=== PATIENT | female | born 1980 | race Caucasian/White ===

== ENCOUNTER 2016-10-08 23:55 | Observation (INO) | payer OTHER ==
--- NOTE | ~2016-10-08 | HP ---
Unit #: [id number] #: [id number] Patient: GEENA HAWKINS [id number] [address] [place], [place] [address] [id number] I MR#: [id number] NAME: GEENA HAWKINS ROOM: 217 Age: 36 Sex: F Admission Date: 10/09/2016 : 1980 Attending Physician: Nancy Guzman M.D. Primary Care Physician: Ariana Mckeon M.D. HISTORY AND PHYSICAL CHIEF COMPLAINT Nausea, vomiting. HISTORY OF PRESENT ILLNESS 36-year-old with history of cannabis hyperemesis syndrome with intractable nausea and vomiting in the past with multiple episodes, admitted because of nausea, vomiting again. According to her, it started one day prior to the admission. She initially went to [facility] and from there she was transferred here because her vomiting did not get better. Currently, she is complaining of nausea. Also, generalized abdominal pain. When she had it, it is 10 out of 10, currently better with Dilaudid 5 out of 10. Also noticed that her blood pressure is 177/138 on admission. No chest pain, no shortness of breath, no diarrhea, no constipation, no leg swelling. PAST MEDICAL HISTORY 1. History of multiple admissions for nausea, vomiting secondary to cannabis/hyperemesis syndrome. 2. History of marijuana abuse. 3. Chronic leukocytosis, most likely secondary to marijuana abuse. 4. Hypertension. 5. History of epigastritis. PAST SURGICAL HISTORY 1. History of . 2. Tubal ligation. 3. Bone marrow biopsy. SOCIAL HISTORY No history of smoking or alcohol. She uses marijuana. FAMILY HISTORY Positive for hypertension. ALLERGIES Morphine. CURRENT HOME MEDICATIONS 1. Lopressor 25 p.o. b.i.d. 2. Hydralazine 50 mg four times daily. 3. Zofran 4 mg q.6 p.r.n. nausea. REVIEW OF SYSTEMS No headache, no visual changes, no weakness, numbness, tingling. No skin Unit #: [id number] #: [id number] Patient: GEENA HAWKINS rash. Reviewed twelve point systems with her which are negative except as in HPI. PHYSICAL EXAMINATION VITAL SIGNS: Temperature 98.9, pulse 115, respirations 18, current blood pressure is 210/125. GENERAL: 37-year-old lying on bed, alert, oriented x3. HEENT: Pupils equally react to light and accommodation. Dry mucosa present. NECK: Supple. HEART: S1, S2 heard. Tachycardia present. No murmurs. LUNGS: Clear to auscultation. No crackles, no rhonchi. ABDOMEN: Tender. Voluntary guarding present. No hepatosplenomegaly. Bowel sounds are present. EXTREMITIES: No pedal edema. SKIN: No rash. NEUROLOGICAL: No focal neurological deficits. Moving all extremities. DIAGNOSTIC STUDIES LABORATORY DATA: WBC 18.8, hemoglobin 15.4, platelets 377, beta hcg negative. Sodium 133, creatinine 0.7, glucose 207, AST 45, ALT 63, alkaline phosphatase 81, total bilirubin 0.6. lipase 26. Urinalysis shows 1+ protein and ketone 3+. No signs of infection. ASSESSMENT AND PLAN 37-year-old admitted because of nausea and vomiting. 1. Hypertensive crisis secondary to not taking her home medications: I am going to monitor her vitals closely, give her IV Vasotec and p.o. metoprolol and hydralazine and monitor her blood pressure. She might need IV Lopressor or IV hydralazine. In that case, I am going to transfer her to telemetry. Currently, she is in Med/Surg observation status. 2. Cannabis hyperemesis syndrome with multiple previous admission: Dr. Art to see. I am going to start her on IV Phenergan and IV Dilaudid. 3. Chronic leukocytosis, most likely secondary to marijuana abuse: No signs of infection. Monitor. 4. Metabolic acidosis: Continue with IV fluids. 5. Check urine tox screen and check vitals q.4 hours. Dictated by Sonya De La Garza TD: 10/09/2016 11:16 JOB #: [id number] Unit #: [id number] #: [id number] Patient: GEENA HAWKINS HISTORY AND PHYSICAL X Nancy Guzman MD HISTORY AND PHYSICAL
[~2016-10-08 23:55] MED LIST: ALDACTONE25 MG PO; APRESOLINE10 M1; BACTRIM DS TABL1 TA2 PO; BENTYL10 M1 PO; BENTYL20 MG PO; CIPRO PO; CLINDAMYCIN HC300 MG PO; COMPAZINE PR; DITROPAN PO; HYDRALAZINE HCL25 MG PO; HYDRALAZINE HCL50 MG PO; HYDROCODON-ACE1 EAC7 PO; LISINOPRIL10 MG PO; LOPRESSOR PO; LORTAB 5-325 M1 EACH PO; MACROBID 100 M100 MG PO; NAPROXEN PO; NO MEDICATIONS; NORCO 7.5-3251 EACH PO; NORVASC PO; PERCOCET 5-3251 TAB PO; PERCOCET PO; PERIDEX473 ML PO; PHENERGAN PR; PHENERGAN SUPP25 M1 PR; PHENERGAN SUPP25 MG PR; PHENERGAN12.5 MG PO; PHENERGAN25 MG PO; POTASSIUM99 M1 PO; PRENATAL MULITV1 TAB PO; PRENATAL1 TA1 PO; PRILOSEC20 MG PO; PROTONIX PO; VOLTAREN75 MG PO; ZANTAC150 M1 PO; ZESTRIL10 M1 PO; ZOFRAN ODT4 MG PO; ZOFRAN ODT4 MG SL; ZOFRAN ODT4 MG/UDTAB PO; ZOFRAN PO
[2016-10-09 01:41] LABS: BASOPHIL% 0.1 % (0-2.5); DIFF IND NO; HEMATOCRIT 45.1 % (35.0-45.0); HEMOGLOBIN 15.4 gm/dL (12.0-16.0); LYMPHOCYTE# 1.6 X10e3 (1.0-3.5); LYMPHOCYTE% 8.5 % (17.0-45.0); MEAN CELL VOLUME 85.9 FL (83-96); MEAN CORPUSCULAR HEMOGLOBIN 29.3 PG (28-34); MEAN CORPUSCULAR HGB CONC 34.1 g/dL (30-36); MEAN PLATELET VOLUME 8.9 FL (6.5-11.5); MONOCYTE# 0.4 X10e3 (0-1.0); NEUTROPHIL# 16.8 X10e3 (1.5-7.1); NEUTROPHIL% 89.4 % (40-75); PLATELET COUNT 377 X10e3 (140-420); RED BLOOD COUNT 5.25 X10e (3.90-5.30); RED CELL DISTRIBUTION WIDTH 12.9 % (11.0-15.5); WHITE BLOOD COUNT 18.8 X10e3 (4.0-10.5)
[2016-10-09 01:53] LABS: ALBUMIN SERUM 4.5 g/dL (3.5-5.0); ALKALINE PHOSPHATASE 81 U/L (32-92); ALT (SGPT) 63 U/L (10-40); AST (SGOT) 45 U/L (10-42); BILIRUBIN, DIRECT 0.1 mg/dL (0.0-0.2); BILIRUBIN,INDIRECT 0.5 mg/dL (0.0-0.9); BILIRUBIN,TOTAL 0.6 mg/dL (0.2-2.0); BLOOD UREA NITROGEN 6 mg/dL (9-23); BUN/CREATININE RATIO 8.57; CARBON DIOXIDE 18 mmol/L (22-31); CHLORIDE 100 mmol/L (100-111); CREATININE SERUM 0.7 mg/dL (0.6-1.4); GLOM FILT RATE Estimated ABOVE60 mL/min (>60); GLUCOSE FASTING 207 mg/dL (70-110); LIPASE 26 U/L (22-51); POTASSIUM 3.5 mmol/L (3.5-5.1); SODIUM 133 mmol/L (135-145)
[2016-10-09 02:55] LABS: URINE SOURCE CLEAN CATCH
[2016-10-09 02:57] LABS: URINE APPEARANCE CLEAR; URINE BILIRUBIN NEG (NEG); URINE BLOOD NEG (NEG); URINE COLOR YELLOW; URINE GLUCOSE 100 MG/DL (NORM); URINE LEUKOCYTE ESTERASE NEG (NEG); URINE NITRATE NEG (NEG); URINE PROTEIN 1+ (NEG); URINE UROBILINOGEN 0.2 MG/DL (NORM)
[2016-10-09 03:00] LABS: MICRO INDICATED? YES; URINE KETONE 3+ (NEG)
[2016-10-09 03:05] LABS: CULTURE INDICATED? NO; URINE BACTERIA NEG (NEG); URINE SQUAMOUS EPITHELIAL CELL OCCAS /[HPF]; URINE WBC 0-2 /[HPF] (0-5)
[2016-10-09 03:06] LABS: URINE MUCUS PRESENT
[2016-10-09 15:30] LABS: AMPHETAMINE NEG (NEG); BARBITURATES NEG (NEG); BENZODIAZEPINES NEG (NEG); COCAINE NEG (NEG); MARIJUANA POS (NEG); OPIATES POS (NEG); TRICYCLIC ANTIDEPRESSANTS NEG (NEG); U METHADONE NEG (NEG)
[2016-10-10 07:07] LABS: HEMATOCRIT 42.1 % (35.0-45.0); HEMOGLOBIN 13.9 gm/dL (12.0-16.0); MEAN CELL VOLUME 86.8 FL (83-96); MEAN CORPUSCULAR HEMOGLOBIN 28.6 PG (28-34); MEAN PLATELET VOLUME 8.3 FL (6.5-11.5); RED BLOOD COUNT 4.85 X10e (3.90-5.30); RED CELL DISTRIBUTION WIDTH 13.1 % (11.0-15.5); WHITE BLOOD COUNT 13.2 X10e3 (4.0-10.5)
[2016-10-10 07:46] LABS: ALBUMIN SERUM 3.7 g/dL (3.5-5.0); ALKALINE PHOSPHATASE 62 U/L (32-92); ALT (SGPT) 54 U/L (10-40); AST (SGOT) 35 U/L (10-42); BILIRUBIN,TOTAL 0.9 mg/dL (0.2-2.0); BLOOD UREA NITROGEN 11 mg/dL (9-23); BUN/CREATININE RATIO 18.33; CALCIUM SERUM 8.7 mg/dL (8.4-10.2); CARBON DIOXIDE 23 mmol/L (22-31); CHLORIDE 106 mmol/L (100-111); CREATININE SERUM 0.6 mg/dL (0.6-1.4); GLOM FILT RATE Estimated ABOVE60 mL/min (>60); GLUCOSE FASTING 79 mg/dL (70-110); POTASSIUM 3.5 mmol/L (3.5-5.1); PROTEIN TOTAL SERUM 6.6 g/dL (6.0-8.3); SODIUM 139 mmol/L (135-145)
[2017-02-13] MEDS ORDERED: OXYCODONE-APAP1 EACH PO (15:35)
== END 2016-10-10 14:57 | disposition home or self-care (01) ==
LOC: SED 23:55 → C2A 10-09 06:25
PROVIDERS: Emergency Medicine; Internal Medicine
DX: I16.9 Hypertensive crisis, unspecified (principal); F12.188 Cannabis abuse with other cannabis-induced disorder; R11.2 Nausea with vomiting, unspecified; D72.828 Other elevated white blood cell count; E87.2 Acidosis; Z82.49 Family history of ischemic heart disease and other diseases of the circulatory system; Z88.5 Allergy status to narcotic agent
CPT/HCPCS: 36415; 80048; 80053; 80076; 80307; 81003; 83690; 84703; 85025; 85027; 96374; 96375; 96376; 99285; C9113; G0378; J1170; J1885; J2405; J2550

== ENCOUNTER 2017-01-18 06:56 | Emergency (ER) | payer OTHER ==
--- NOTE | ~2017-01-18 | CT2 ---
[facility] A Service [facility] RADIOLOGY TEXT RESULTS PATIENT: GEENA HAWKINS LOCATION: SED : 82 UNIT #: [id number] AGE: [address]: Cali Garza MD SEX: F ORDER DR: [id number] [address] [address] [id number] E MR#: [id number] Acc #: [id number] NAME: GEENA HAWKINS : 1980 SEX: F STUDY DATE/TIME: 01/18/2017 8:45 UNIT: SED ROOM: STUDY DESCRIPTION: CT Abd and Pelv W Cont Attending Physician: Cali Garza M.D. Ordering Physician: Cali Garza M.D. Primary Care Physician: Ariana Mckeon M.D. MEDICAL IMAGING REPORT This report is preliminary unless electronic signature is present. EXAM CT abdomen and pelvis with contrast. INDICATION Abdominal pain upper abdomen since this morning at 7. COMPARISON 09/23/2016 TECHNIQUE The patient was given 100 mL of Isovue-370 and axial 5 mm images were obtained through the abdomen and pelvis. This CT exam was performed with one or more of the following radiation dose reduction techniques: automatic exposure control, adjustment of mA and/or kV according to patient size, and iterative reconstruction. FINDINGS The lung bases are clear. There is motion affecting the mid abdominal images. The gallbladder has been removed. The liver, spleen, pancreas, and adrenal glands are normal. The kidneys appear normal. The aorta is normal in size and there is no adenopathy. The bowel is normal. The uterus and adnexal regions are normal. The bladder is normal. Bones are unremarkable. IMPRESSION 1. The patient breathed during part of the study and images of the kidneys are blurred by motion. The prior CT scan 09/23/2016 showed an upper pole renal stone on the right but I cannot tell if that is still present. There is certainly no hydronephrosis on the right and no ureteral stone is visible. 2. The appendix is normal. [facility] A Service [facility] RADIOLOGY TEXT RESULTS PATIENT: GEENA HAWKINS [place] [facility] [place] 82 UNIT #: [id number] AGE: [address]: Cali Garza MD SEX: F ORDER DR: 3. Previous cholecystectomy. 4. Otherwise, normal. Dictated by... Harpreet Kaur M.D. THIS IS AN ELECTRONICALLY VERIFIED REPORT Harpreet Kaur M.D. at 01/19/2017 7:26 AM KAYLIN/jazz TD: 01/18/2017 15:22 JOB #: [id number] MEDICAL IMAGING REPORT Page 1 of 1
[2017-01-18 07:38] LABS: BASOPHIL# 0.1 X10e3 (0-0.3); BASOPHIL% 0.3 % (0-2.5); HEMATOCRIT 47.2 % (35.0-45.0); HEMOGLOBIN 16.1 gm/dL (12.0-16.0); LYMPHOCYTE# 2.7 X10e3 (1.0-3.5); LYMPHOCYTE% 9.3 % (17.0-45.0); MEAN CELL VOLUME 84.7 FL (83-96); MEAN CORPUSCULAR HEMOGLOBIN 28.9 PG (28-34); MEAN CORPUSCULAR HGB CONC 34.2 g/dL (30-36); MONOCYTE# 0.8 X10e3 (0-1.0); MONOCYTE% 2.7 % (3.0-12.0); NEUTROPHIL# 25.1 X10e3 (1.5-7.1); NEUTROPHIL% 87.7 % (40-75); PLATELET COUNT 406 X10e3 (140-420); RED BLOOD COUNT 5.58 X10e (3.90-5.30); WHITE BLOOD COUNT 28.6 X10e3 (4.0-10.5)
[2017-01-18 07:43] LABS: DIFF IND YES
[2017-01-18 08:14] LABS: PLATELET ESTIMATE NORMAL (NORMAL); RBC NORMAL YES
[2017-01-18 08:31] LABS: ALBUMIN SERUM 4.8 g/dL (3.5-5.0); BILIRUBIN,TOTAL 0.6 mg/dL (0.2-2.0); BUN/CREATININE RATIO 11.42; CALCIUM SERUM 8.5 mg/dL (8.4-10.2); CREATININE SERUM 0.7 mg/dL (0.6-1.4); PROTEIN TOTAL SERUM 8.1 g/dL (6.0-8.3)
[2017-01-18 08:34] LABS: POTASSIUM 2.6 mmol/L (3.5-5.1)
[2017-02-13] MEDS ORDERED: OXYCODONE-APAP1 EACH PO (15:35)
== END 2017-01-18 10:08 | disposition home or self-care (01) ==
LOC: SED 06:56
PROVIDERS: Emergency Medicine
DX: R10.9 Unspecified abdominal pain (principal); E87.6 Hypokalemia; I10 Essential (primary) hypertension; Z87.442 Personal history of urinary calculi; Z88.5 Allergy status to narcotic agent; Z79.899 Other long term (current) drug therapy
CPT/HCPCS: 36415; 74177; 80053; 83690; 85025; 96374; 96375; 99284; J0780; J1200; Q9967

== ENCOUNTER 2017-01-18 12:44 | Emergency (ER) | payer OTHER ==
[2017-01-18 14:24] LABS: BASOPHIL% 0.2 % (0-2.5); DIFF IND YES; HEMATOCRIT 44.3 % (35.0-45.0); HEMOGLOBIN 15.3 gm/dL (12.0-16.0); LYMPHOCYTE# 1.1 X10e3 (1.0-3.5); LYMPHOCYTE% 4.7 % (17.0-45.0); MEAN CELL VOLUME 82.7 FL (83-96); MEAN CORPUSCULAR HEMOGLOBIN 28.6 PG (28-34); MEAN CORPUSCULAR HGB CONC 34.6 g/dL (30-36); MEAN PLATELET VOLUME 8.9 FL (6.5-11.5); MONOCYTE# 0.3 X10e3 (0-1.0); MONOCYTE% 1.3 % (3.0-12.0); NEUTROPHIL# 20.9 X10e3 (1.5-7.1); NEUTROPHIL% 93.8 % (40-75); PLATELET COUNT 326 X10e3 (140-420); RED BLOOD COUNT 5.36 X10e (3.90-5.30); RED CELL DISTRIBUTION WIDTH 12.9 % (11.0-15.5); WHITE BLOOD COUNT 22.3 X10e3 (4.0-10.5)
[2017-01-18 14:45] LABS: BILIRUBIN, DIRECT 0.1 mg/dL (0.0-0.2); BILIRUBIN,INDIRECT 1.1 mg/dL (0.0-0.9); BILIRUBIN,TOTAL 1.2 mg/dL (0.2-2.0); BUN/CREATININE RATIO 8.57; CALCIUM SERUM 8.9 mg/dL (8.4-10.2); CREATININE SERUM 0.7 mg/dL (0.6-1.4); POTASSIUM 3.5 mmol/L (3.5-5.1); PROTEIN TOTAL SERUM 8.3 g/dL (6.0-8.3)
[2017-01-18 14:55] LABS: PLATELET ESTIMATE NORMAL (NORMAL)
[2017-01-18 14:56] LABS: RBC NORMAL YES
[2017-01-18 15:54] LABS: URINE SOURCE CLEAN CATCH
[2017-01-18 16:06] LABS: URINE APPEARANCE CLEAR; URINE BILIRUBIN NEG (NEG); URINE BLOOD 1+ (NEG); URINE COLOR YELLOW; URINE GLUCOSE 250 MG/DL (NEG); URINE KETONE 3+ (NEG); URINE LEUKOCYTE ESTERASE NEG (NEG); URINE NITRATE NEG (NEG); URINE PROTEIN 2+ (NEG); URINE SPECIFIC GRAVITY 1.027 (1.003-1.035); URINE UROBILINOGEN 0.2 MG/DL (NEG)
[2017-01-18 16:10] LABS: U HYALINE CASTS AUWI 0-2 /[LPF]; URINE BACTERIA AUWI NEG (NEGATIVE); URINE SQUAMOUS EPITHELIAL CELL NONE SEEN /[HPF]
[2017-01-18 16:15] LABS: CULTURE INDICATED? NO
[2017-02-13] MEDS ORDERED: OXYCODONE-APAP1 EACH PO (15:35)
== END 2017-01-18 17:17 | disposition home or self-care (01) ==
LOC: CED 12:44
PROVIDERS: Student in an Organized Health Care Education/Training Program
DX: R11.2 Nausea with vomiting, unspecified (principal); I10 Essential (primary) hypertension; Z98.51 Tubal ligation status; Z87.442 Personal history of urinary calculi; Z90.49 Acquired absence of other specified parts of digestive tract; Z88.5 Allergy status to narcotic agent; Z79.899 Other long term (current) drug therapy
CPT/HCPCS: 36415; 80048; 80076; 81003; 82150; 83690; 84703; 85025; 96361; 96374; 96375; 99284; C9113; J1200; J2405; J2765; J3010

== ENCOUNTER 2017-02-01 19:51 | Observation (INO) | payer OTHER ==
--- NOTE | ~2017-02-01 | HP ---
Unit #: [id number] #: [id number] Patient: GEENA HAWKINS [id number] [address] [place], [place] [address] [id number] I MR#: [id number] NAME: GEENA HAWKINS ROOM: 476 Age: 36 Sex: F Admission Date: 02/02/2017 : 1980 Attending Physician: Nancy Guzman M.D. Primary Care Physician: Ariana Mckeon M.D. HISTORY AND PHYSICAL CHIEF COMPLAINT Nausea and vomiting many times today. DISCUSSION This is a 36-year-old female with a history of multiple admissions for nausea and vomiting secondary to Cannabis hyperemesis syndrome, history of (1) nodules, chronic leukocytosis, hypertension, history of esophagitis. She presents to the emergency room with chief complaint of nausea, vomiting multiple times today, unable to keep anything down. She was found to have potassium 3.5, leukocytes, white count 25,1000, sodium 131, and immediately been admitted. She denies chest pain. She denies fever, chills, cough, or any other complaint. No shortness of breath. No leg swelling. No constipation. PAST MEDICAL HISTORY 1. History of multiple admissions for nausea and vomiting secondary to Cannabis, hyperemesis syndrome. 2. History of marijuana abuse. 3. History of chronic leukocytosis, most likely secondary to marijuana abuse. 4. History of hypertension. 5. History of esophagitis. 6. History of nonobstructing kidney stones. 7. Marijuana abuse. PAST SURGICAL HISTORY 1. History of . 2. Tubal ligation. 3. Bone marrow biopsy. 4. Cholecystectomy. SOCIAL HISTORY She denied smoking alcohol. Still she continued to use marijuana. FAMILY HISTORY Positive for hypertension. MEDICATION FROM HOME Hydralazine 50 mg 4 times daily; Zofran 4 mg q.6 hours p.r.n. for nausea; Lopressor 25 b.i.d. REVIEW OF SYSTEMS Negative except for history of presenting illness. Unit #: [id number] #: [id number] Patient: GEENA HAWKINS PHYSICAL EXAMINATION GENERAL: 36-year-old young female, lying in the bed, comfortable, not in any distress. VITAL SIGNS: His current vitals are following: Temperature 98.5, heart rate 82, respiratory rate 16, blood pressure 196/111. HEENT: Pupils are equal, react to light and accommodation. Head is normocephalic, atraumatic. Dry mucous membrane. NECK: Supple. No JVD. No thyromegaly. LUNGS: Clear to auscultation bilateral. No rhonchi. No wheezing. HEART: S1, S2, regular rate and rhythm. ABDOMEN: Soft, nontender, nondistended. Bowel sounds positive. EXTREMITIES: To inspection normal. No cyanosis, no clubbing, no edema. NEUROLOGIC: No focal neurologic deficit. Cranial nerves II-XII intact moving all extremities. SKIN: No rash. PSYCH: Normal mood and affect. DIAGNOSTIC STUDIES LABORATORY STUDIES: UA with glucose more than 1,000, rbc's 50-100. Chemistry - sodium 131, potassium 3.1, chloride 102, CO2 16, glucose 200, BUN 5, creatinine 0.5. LFT within normal limits. Lipase 20. White count 25.2, hemoglobin 15, hematocrit 44, platelet 382. ASSESSMENT AND PLAN 1. Intractable nausea and vomiting secondary to Cannabis hyperemesis syndrome. 2. Hypokalemia, replace. 3. Check magnesium level. 4. Hyponatremia. 5. Leukocytosis with history of chronic leukocytosis. 6. History of esophagitis. 7. Hypertension. 8. History of nonobstructing kidney stone. 9. Marijuana abuse. 10. DVT prophylaxis. Will place the patient on SCDs. 11. Admitted to the hospital for observation, IV Protonix, Zofran, IV fluids, replace potassium, check magnesium level, hyperglycemia, check A1c. Dictated by Sonya Mayo TD: 02/02/2017 07:20 JOB #: [id number] HISTORY AND PHYSICAL Page 1 of 1 X X HISTORY AND PHYSICAL
[2017-02-01 21:17] LABS: BASOPHIL# 0.1 X10e3 (0-0.3); BASOPHIL% 0.3 % (0-2.5); HEMATOCRIT 44.3 % (35.0-45.0); HEMOGLOBIN 15.1 gm/dL (12.0-16.0); LYMPHOCYTE# 2.5 X10e3 (1.0-3.5); LYMPHOCYTE% 9.8 % (17.0-45.0); MEAN CELL VOLUME 83.8 FL (83-96); MEAN CORPUSCULAR HEMOGLOBIN 28.7 PG (28-34); MEAN CORPUSCULAR HGB CONC 34.2 g/dL (30-36); MEAN PLATELET VOLUME 9.1 FL (6.5-11.5); MONOCYTE# 0.9 X10e3 (0-1.0); MONOCYTE% 3.4 % (3.0-12.0); NEUTROPHIL# 21.8 X10e3 (1.5-7.1); NEUTROPHIL% 86.5 % (40-75); PLATELET COUNT 382 X10e3 (140-420); RED BLOOD COUNT 5.28 X10e (3.90-5.30); WHITE BLOOD COUNT 25.2 X10e3 (4.0-10.5)
[2017-02-01 21:21] LABS: DIFF IND YES
[2017-02-01 21:42] LABS: PLATELET ESTIMATE NORMAL (NORMAL)
[2017-02-01 21:49] LABS: ALBUMIN SERUM 4.7 g/dL (3.5-5.0); BILIRUBIN, DIRECT 0.2 mg/dL (0.0-0.2); BILIRUBIN,INDIRECT 0.6 mg/dL (0.0-0.9); BILIRUBIN,TOTAL 0.8 mg/dL (0.2-2.0); CALCIUM SERUM 8.7 mg/dL (8.4-10.2); CREATININE SERUM 0.5 mg/dL (0.6-1.4); GLOM FILT RATE Estimated 126.3 mL/min (>60); POTASSIUM 3.1 mmol/L (3.5-5.1)
[2017-02-01 21:55] LABS: URINE SOURCE CLEAN CATCH
[2017-02-01 22:01] LABS: URINE APPEARANCE CLEAR; URINE BILIRUBIN NEG (NEG); URINE BLOOD 3+ (NEG); URINE COLOR YELLOW; URINE GLUCOSE >1000 MG/DL (NEG); URINE KETONE 3+ (NEG); URINE LEUKOCYTE ESTERASE NEG (NEG); URINE NITRATE NEG (NEG); URINE PROTEIN 1+ (NEG); URINE SPECIFIC GRAVITY 1.023 (1.003-1.035); URINE UROBILINOGEN 0.2 MG/DL (NEG)
[2017-02-01 22:06] LABS: U HYALINE CASTS AUWI 0-2 /[LPF]; URBCS1 AUWI 50-100 /[HPF] (0-2); URINE BACTERIA AUWI NEG (NEGATIVE); URINE SQUAMOUS EPITHELIAL CELL OCC /[HPF]
[2017-02-01 22:08] LABS: CULTURE INDICATED? NO
[2017-02-02] MEDS ORDERED: APRESOLINE PO (00:07)
[2017-02-02 09:16] LABS: BASOPHIL# 0.1 X10e3 (0-0.3); BASOPHIL% 0.3 % (0-2.5); HEMOGLOBIN 14.4 gm/dL (12.0-16.0); LYMPHOCYTE# 1.9 X10e3 (1.0-3.5); LYMPHOCYTE% 8.7 % (17.0-45.0); MEAN CORPUSCULAR HEMOGLOBIN 28.5 PG (28-34); MEAN CORPUSCULAR HGB CONC 33.5 g/dL (30-36); MEAN PLATELET VOLUME 9.3 FL (6.5-11.5); MONOCYTE# 0.5 X10e3 (0-1.0); MONOCYTE% 2.3 % (3.0-12.0); NEUTROPHIL# 19.9 X10e3 (1.5-7.1); NEUTROPHIL% 88.7 % (40-75); PLATELET COUNT 332 X10e3 (140-420); RED BLOOD COUNT 5.06 X10e (3.90-5.30); RED CELL DISTRIBUTION WIDTH 13.2 % (11.0-15.5); WHITE BLOOD COUNT 22.4 X10e3 (4.0-10.5)
[2017-02-02 09:22] LABS: DIFF IND NO
[2017-02-02 09:43] LABS: CALCIUM SERUM 8.9 mg/dL (8.4-10.2); CREATININE SERUM 0.5 mg/dL (0.6-1.4); GLOM FILT RATE Estimated 126.3 mL/min (>60); MAGNESIUM 1.8 mg/dL (1.6-3.0); POTASSIUM 3.7 mmol/L (3.5-5.1)
[2017-02-03 07:48] LABS: HEMATOCRIT 42.3 % (35.0-45.0); HEMOGLOBIN 14.2 gm/dL (12.0-16.0); MEAN CELL VOLUME 85.8 FL (83-96); MEAN CORPUSCULAR HEMOGLOBIN 28.7 PG (28-34); MEAN CORPUSCULAR HGB CONC 33.5 g/dL (30-36); MEAN PLATELET VOLUME 9.3 FL (6.5-11.5); RED BLOOD COUNT 4.93 X10e (3.90-5.30); RED CELL DISTRIBUTION WIDTH 13.2 % (11.0-15.5); WHITE BLOOD COUNT 17.7 X10e3 (4.0-10.5)
[2017-02-03 07:54] LABS: ALBUMIN SERUM 3.7 g/dL (3.5-5.0); BILIRUBIN,TOTAL 1.3 mg/dL (0.2-2.0); CALCIUM SERUM 8.7 mg/dL (8.4-10.2); CREATININE SERUM 0.5 mg/dL (0.6-1.4); GLOM FILT RATE Estimated 126.3 mL/min (>60); POTASSIUM 3.4 mmol/L (3.5-5.1)
[2017-02-03] MEDS ORDERED: ZOFRAN PO (11:37)
[2017-02-13] MEDS ORDERED: OXYCODONE-APAP1 EACH PO (15:35)
== END 2017-02-03 17:38 | disposition home or self-care (01) ==
LOC: CED 19:51 → C2A 23:40 → CEDOF 23:40 → CED 02-02 00:26 → CEDOF 02-02 00:26 → C4C 02-02 03:11 → CEDOF 02-02 03:11 → C4C 02-02 07:16 → C2A 02-02 12:01
PROVIDERS: Emergency Medicine; Internal Medicine
DX: F12.188 Cannabis abuse with other cannabis-induced disorder (principal); R11.2 Nausea with vomiting, unspecified; E87.6 Hypokalemia; E87.1 Hypo-osmolality and hyponatremia; D72.829 Elevated white blood cell count, unspecified; I10 Essential (primary) hypertension; F12.10 Cannabis abuse, uncomplicated; Z87.442 Personal history of urinary calculi; Z82.49 Family history of ischemic heart disease and other diseases of the circulatory system
CPT/HCPCS: 36415; 80048; 80053; 80076; 81003; 83036; 83690; 83735; 85025; 85027; 96361; 96374; 96375; 96376; 99285; C9113; G0378; J0360; J1100; J2405; J2550; J2765

== ENCOUNTER 2017-02-04 02:10 | Day surgery (SDC) | payer OTHER ==
--- NOTE | ~2017-02-04 | CO ---
Unit #: [id number] #: [id number] Patient: GEENA HAWKINS [id number] [facility]. [place], [place] [address] [id number] E MR#: [id number] NAME: GEENA HAWKINS ROOM: Age: 36 Sex: F Admission Date: 02/04/2017 : 1980 Attending Physician: Dianelys Hyatt A.P.R.N. Primary Care Physician: Ariana Mckeon M.D. Consultation Date: 02/04/2017 CONSULTATION REPORT REASON FOR CONSULTATION Blood pressure. HISTORY OF PRESENT ILLNESS The patient is a 36-year-old female with a past medical history of cannabis hyperemesis syndrome, chronic leukocytosis, hypertension, esophagitis, nephrolithiasis who was admitted by Dr. Munoz for right ureteral stone. Of note, the patient was hospitalized at [facility] February 02 through the 2016 for nausea and vomiting secondary to cannabis hyperemesis syndrome. She was discharged home yesterday. She states that around midnight she developed right flank pain. She describes it as "sharp." It has been constant in nature. There are no exacerbating or alleviating factors. She states it is similar to when she had a kidney stone in the past. She has also had more than ten bouts of emesis. She denies any fever. In the emergency department, a CT of the abdomen and pelvis was done and showed a 7 x 5 mm stone in the proximal right ureter with mild right hydronephrosis. She also has urinalysis notable for 2+ ketones, 5-10 white blood cells, trace leukocyte esterase. She was given a gram of Rocephin in the emergency department. Laboratory also notable for potassium of 2.7. She received 20 mEq of potassium IV. She was admitted by Dr. Munoz. Blood pressure initially was 168/130. The patient is on hydralazine at home but has been unable to keep the medication down due to vomiting. Most recent blood pressure is 151/110. I am told she received 10 mg of hydralazine IV. PAST MEDICAL HISTORY 1. Admission to [facility] February 02 through the 2016 for cannabis hyperemesis syndrome. She has had multiple admissions for the same. 2. History of marijuana abuse. 3. Chronic leukocytosis, likely secondary to marijuana abuse. 4. Hypertension. 5. Esophagitis. 6. History of nephrolithiasis. PAST SURGICAL HISTORY 1. . 2. Tubal ligation. 3. Bone marrow biopsy. 4. Cholecystectomy. Unit #: [id number] #: [id number] Patient: GEENA HAWKINS SOCIAL HISTORY The patient smokes marijuana. She denies alcohol. FAMILY HISTORY Notable for hypertension. ALLERGIES Morphine. HOME MEDICATIONS 1. Hydralazine 50 mg four times daily. 2. Zofran 4 mg q.6 hours p.r.n. 3. Lopressor is listed 25 mg b.i.d. REVIEW OF SYSTEMS A complete review of systems is negative except as indicated in the HPI. DIAGNOSTIC STUDIES IMAGING: CT of the abdomen and pelvis shows a 7 x 5 mm ureteral stone in the right ureter with mild right hydronephrosis. LABORATORY: Urinalysis notable for trace leukocyte esterase, 2+ ketones, 3+ blood, 50-100 red blood cells, 5-10 white blood cells, negative for bacteria. Urine tox screen is positive for marijuana. Complete blood count notable for white blood cell count of 21.3. Comprehensive metabolic panel notable for sodium 134, potassium 2.7, CO2 18, anion gap 11, glucose 181, calcium 8.1. Amylase and lipase are normal. PHYSICAL EXAMINATION VITAL SIGNS: Temperature is 98.6, pulse 68, respirations 20, blood pressure 168/130. Oxygen saturation 99% on room air. GENERAL: The patient is a female who is sleeping but wakes to voice. HEENT: The head is atraumatic. Mucous membranes are dry. NECK: Supple. Trachea is midline. CARDIOVASCULAR: Tachycardic in the 110s. LUNGS: Clear to auscultation bilaterally with no increased work of breathing. ABDOMEN: Soft, nontender with bowel sounds present in all four quadrants. EXTREMITIES: Nontender with no pedal edema. NEUROLOGIC: The patient is awake and alert. She follows commands. PSYCH: Mood and affect are normal. The patient is cooperative. SKIN: Skin of examined areas is warm and dry. ASSESSMENT The patient is a 36-year-old female with: 1. Right ureteral stone. 2. Mild right hydronephrosis. 3. Leukocytosis: The patient's white blood cell count was 17.7 yesterday. It is 21.3 today. She does have chronic leukocytosis but has been attributed to marijuana use in the past. She had a bone marrow biopsy September 14, 2015, that showed normocellular bone marrow with mild relative granulocytic hyperplasia. Unit #: [id number] #: [id number] Patient: GEENA HAWKINS 4. Hypokalemia: The patient received 20 mEq of potassium in the emergency department. 5. History of cannabis/hyperemesis. 6. Hypertension. 7. History of esophagitis. 8. Tachycardia. PLAN 1. Regarding leukocytosis, the patient does have trace leukocyte esterase and 5-10 white blood cells in the urine. I have ordered a urine culture and sensitivity on urine in the lab as well as Rocephin 1 g IV daily. 2. Regarding tachycardia and hypertension, the patient is on hydralazine and Lopressor at home. Will change these to IV due to the patient being unable to tolerate p.o. at the present time. I have also ordered an EKG and will replace potassium. I have also ordered a magnesium level as well as TSH. Thank you very much for the consultation. We will follow the patient along closely with you. Dictated by... Viki Kuhn M.D. JENARO/manuel TD: 02/04/2017 13:14 JOB #: [id number] CONSULTATION REPORT Page 1 of 1 X Viki Kuhn MD X CONSULTATION REPORT
--- NOTE | ~2017-02-04 | CT4 ---
[facility] A Service of [facility] RADIOLOGY TEXT RESULTS PATIENT: GEENA HAWKINS LOCATION: [place] [address]-2 : [birth year] UNIT #: [id number] AGE: [address]: Fab Munoz MD SEX: F ORDER DR: [id number] [facility] [address] [place], [place] [address] [id number] E MR#: [id number] Acc #: [id number] NAME: GEENA HAWKINS : 1980 SEX: F STUDY DATE/TIME: 02/04/2017 05:01 UNIT: [facility] ROOM: STUDY DESCRIPTION: CT Abd and Pelv Wo Cont Attending Physician: Dianelys Hyatt A.P.R.N. Ordering Physician: Dianelys Hyatt A.P.R.N. Primary Care Physician: Ariana Mckeon M.D. MEDICAL IMAGING REPORT This report is preliminary unless electronic signature is present EXAM Abdomen and pelvis CT 02/04/17 at 05:01. INDICATIONS Right flank pain, vomiting that started yesterday. History of kidney stones. Pain rates 10 out of 10. TECHNIQUE Axial noncontrast images were obtained through the abdomen and pelvis. Multiplanar reformats were obtained. This CT exam was performed with one or more of the following radiation dose reduction techniques: automatic exposure control, adjustment of mA and/or kV according to patient size, and iterative reconstruction. COMPARISON Comparison made with 01/18/2017. FINDINGS Abdomen: Lung bases are clear. Gallbladder surgically absent. There is mild right hydronephrosis secondary to a 7 x 5 mm stone in the proximal ureter distal to the ureteral pelvic junction. No other stones are identified. Unenhanced solid organs are otherwise normal. Small hiatal hernia is present. Unopacified GI tract is otherwise normal. Pelvis: No lower ureteral stones are seen. The bladder is normal. There is a 2.7 cm left ovarian cyst. Tubal ligation clips are present. The appendix is normal. The remainder of the unopacified GI tract is normal as well. IMPRESSION 1. Mild right hydronephrosis secondary to a 7 x 5 mm stone in the proximal right ureter. No other stones are seen. [facility] A Service of [facility] RADIOLOGY TEXT RESULTS PATIENT: GEENA HAWKINS LOCATION: [place] [address]-4 : [birth year] UNIT #: [id number] AGE: [address]: Fab Munoz MD SEX: F ORDER DR: 2. Normal unopacified GI tract, including the appendix. 3. 2.7 cm left ovarian cyst. 4. Tubal ligation and cholecystectomy. Dictated by... Fab Rodriguez Jr., M.D. THIS IS AN ELECTRONICALLY VERIFIED REPORT Fab Rodriguez Jr., M.D. at 02/04/2017 9:54 PM CORTES/ramandeep TD: 02/04/2017 09:20 JOB #: [id number] MEDICAL IMAGING REPORT Page 1 of 1 COPY
--- NOTE | ~2017-02-04 | EKG ---
PATIENT: GEENA HAWKINS UNIT #: [id number] Ventricular Rate: 122 BPM Atrial Rate: 122 BPM P-R Interval: 140 ms QRS Duration: 80 ms Q-T Interval: 326 ms QTC Calculation(Bezet): 464 ms P [place]: 57 degrees Calculated R [place]: 45 degrees Calculated T [place]: 65 degrees Diagnosis Line: Sinus tachycardia Diagnosis Line: Borderline ECG Diagnosis Line: No previous ECGs available Diagnosis Line: Confirmed by ZANDER TIRADO MD ([id number]) on Diagnosis Line: 02/05/2017 7:24:04 AM INTERPRETING MD: RAJIV
--- NOTE | ~2017-02-04 | OR ---
Unit #: [id number] #: [id number] Patient: GEENA HAWKINS [id number] [facility]. [place], [place] [address] [id number] I MR#: [id number] NAME: GEENA HAWKINS ROOM: 06499 Date of Procedure: 02/04/2017 Admission Date: 02/04/2017 Surgeon: Fab Munoz M.D. : 1980 Attending Physician: Fab Munoz M.D. Primary Care Physician: Ariana Mckeon M.D. OPERATIVE REPORT PREOPERATIVE DIAGNOSIS Right ureteral calculus. POSTOPERATIVE DIAGNOSIS Right ureteral calculus. PROCEDURES PERFORMED Cystoscopy, right rigid and flexible ureteroscopy, laser lithotripsy, basket extraction, stent placement. ANESTHESIA General with local supplementation. INDICATIONS FOR PROCEDURE This 36-year-old woman, who presented with a 7.4 x 5 mm stone obstructing the right upper ureter. She requested definitive therapy and has waited for until this evening still in pain. DESCRIPTION OF PROCEDURE The patient was given satisfactory general anesthesia and positioned in dorsal lithotomy. The genitalia were prepped and draped. The 21-Georgian rigid cystoscope was introduced with a 30-degree lens and video noting a normal healthy bladder with normal symmetric orifices. The stone was not easily seen fluoroscopically. A Sensor guidewire was passed up the ureter and Lubriglide sizes 8, 10, and 12 were used to dilate the ureter. Flexible ureteroscope was passed alongside the guidewire up to the upper ureter where the stone was seen to be very spiculated and lodged loosely in the upper ureter. It was a fairly fragile stone and was treated with a 360 nanometer laser fiber at settings of 10 and 1.0 turning the power down to 0.4 once its fragility was realized. It was broken down into numerous pieces that were irrigated out and ended up being too small to basket. To be sure there was not a back migrated fragment, I placed a second guidewire and the flexible ureteroscope explored the entire kidney finding one significant fragment, which was basket extracted for specimen. She was left with a 24 x 6 double-J stent with tether in the vagina after emptying the bladder and applying a Uro-jet in the urethra. She will be discharged to follow up in the office on Thursday for removal of her ureteral stent. Dictated by... Unit #: [id number] #: [id number] Patient: ROSSGEENA M.D. RBH/yoselin TD: 02/05/2017 07:25 JOB #: [id number] OPERATIVE REPORT Page 1 of 1 X Fab Munoz MD X PROCEDURE OPERATIVE NOTE
--- NOTE | ~2017-02-04 | HP ---
Unit #: [id number] #: [id number] Patient: GEENA HAWKINS [id number] [place], [place] [address] [id number] E MR#: [id number] NAME: GEENA HAWKINS ROOM: Age: 36 Sex: F Admission Date: 02/04/2017 : 1980 Attending Physician: Dianelys Hyatt A.P.R.N. Primary Care Physician: Ariana Mckeon M.D. HISTORY AND PHYSICAL CHIEF COMPLAINT Right flank pain. HISTORY This 36-year-old woman, with a prior history of ESWL 2 years ago, presented to the emergency department yesterday and was discharged after treatment for nausea and vomiting for 2 days. She did not develop right flank pain until last evening, but it became severe with persistent nausea and vomiting, although no fever, chills or voiding complaints. She had a CT scan done and returned showing a stone obstructing the upper right ureter at L4-5 measuring 7.4 x 5 mm. There are no other stones seen in the collecting system. She requests treatment. PAST MEDICAL HISTORY Chronic gastritis, marijuana use, history of kidney stones, hypertension. SURGERIES Caesarian section, tubal ligation, gallbladder. MEDICATIONS ON ADMISSION Apresoline, Zofran. ALLERGIES Morphine. FAMILY HISTORY Noncontributory. SOCIAL HISTORY Marijuana, as above. REVIEW OF SYSTEMS Negative other than that in the history. PHYSICAL EXAMINATION GENERAL: The patient has multiple tattoos. Resting in the room with lights off. Obviously ills and uncomfortable but alert, oriented, soft spoken. VITAL SIGNS: Afebrile with stable vital signs. Temperature 98.5, pulse 126, blood pressure elevated at 174/118, respirations 19, oxygen saturation 96%, height 4'11", weight 138 pounds. HEENT: Unremarkable. RESPIRATORY: Lungs clear. ABDOMEN: Soft. Remarkably not tender despite pain on the right side. Unit #: [id number] #: [id number] Patient: GEENA HAWKINS EXTREMITIES: No edema. NEUROLOGIC: Intact. DIAGNOSTIC STUDIES LABORATORY: Laboratories include urinalysis with 50-100 RBCs, 5-10 WBCs, no bacteria, glucose 250. WBC 21.3 (was 25 two days ago), hemoglobin 14.7. BUN 9, creatinine 0.6, sodium 134, glucose 181. X-RAYS: CT shows stone obstructing the right ureter, as noted above. IMPRESSION 1. Large proximal right ureteral stone. 2. Leukocytosis. PLAN Will schedule right ureteroscopy, laser lithotripsy and stent placement. If difficulties, fever or pyuria, will simply pursue stone manipulation and stent placement later today. Dictated by Fab Munoz M.D. PRADEEP/lucian TD: 02/04/2017 09:11 JOB #: [id number] HISTORY AND PHYSICAL Page 1 of 1 X Fab Munoz MD X HISTORY AND PHYSICAL
[~2017-02-04 02:10] MED LIST changes: +APRESOLINE PO
[2017-02-04 03:38] LABS: URINE SOURCE CLEAN CATCH
[2017-02-04 03:43] LABS: URINE APPEARANCE CLEAR; URINE BILIRUBIN NEG (NEG); URINE BLOOD 3+ (NEG); URINE COLOR YELLOW; URINE GLUCOSE 250 MG/DL (NEG); URINE KETONE 2+ (NEG); URINE LEUKOCYTE ESTERASE TRACE (NEG); URINE NITRATE NEG (NEG); URINE PH 6.5 (5-8); URINE PROTEIN NEG (NEG); URINE SPECIFIC GRAVITY 1.015 (1.003-1.035); URINE UROBILINOGEN 0.2 MG/DL (NEG)
[2017-02-04 03:45] LABS: CULTURE INDICATED? YES; U HYALINE CASTS AUWI 0-2 /[LPF]; URBCS1 AUWI 50-100 /[HPF] (0-2); URINE BACTERIA AUWI NEG (NEGATIVE); URINE SQUAMOUS EPITHELIAL CELL OCC /[HPF]
[2017-02-04 03:54] LABS: AMPHETAMINE NEG (NEG); BARBITURATES NEG (NEG); BENZODIAZEPINES NEG (NEG); COCAINE NEG (NEG); MARIJUANA POS (NEG); OPIATES NEG (NEG); TRICYCLIC ANTIDEPRESSANTS NEG (NEG); U METHADONE NEG (NEG)
[2017-02-04 05:44] LABS: BASOPHIL# 0.1 X10e3 (0-0.3); BASOPHIL% 0.3 % (0-2.5); EOSINOPHIL% 0.1 % (0.0-7.0); HEMATOCRIT 42.5 % (35.0-45.0); HEMOGLOBIN 14.7 gm/dL (12.0-16.0); LYMPHOCYTE# 1.8 X10e3 (1.0-3.5); LYMPHOCYTE% 8.4 % (17.0-45.0); MEAN CELL VOLUME 83.3 FL (83-96); MEAN CORPUSCULAR HEMOGLOBIN 28.7 PG (28-34); MEAN CORPUSCULAR HGB CONC 34.5 g/dL (30-36); MEAN PLATELET VOLUME 9.1 FL (6.5-11.5); MONOCYTE# 0.9 X10e3 (0-1.0); NEUTROPHIL# 18.6 X10e3 (1.5-7.1); NEUTROPHIL% 87.2 % (40-75); PLATELET COUNT 327 X10e3 (140-420); RED BLOOD COUNT 5.11 X10e (3.90-5.30); RED CELL DISTRIBUTION WIDTH 13.1 % (11.0-15.5); WHITE BLOOD COUNT 21.3 X10e3 (4.0-10.5)
[2017-02-04 05:46] LABS: DIFF IND NO
[2017-02-04 06:07] LABS: ALBUMIN SERUM 4.7 g/dL (3.5-5.0); BILIRUBIN, DIRECT 0.1 mg/dL (0.0-0.2); BILIRUBIN,TOTAL 1.1 mg/dL (0.2-2.0); CALCIUM SERUM 8.1 mg/dL (8.4-10.2); CREATININE SERUM 0.6 mg/dL (0.6-1.4); GLOM FILT RATE Estimated 118.9 mL/min (>60); PROTEIN TOTAL SERUM 7.3 g/dL (6.0-8.3)
[2017-02-04 06:09] LABS: POTASSIUM 2.7 mmol/L (3.5-5.1)
[2017-02-04 13:36] LABS: BUN/CREATININE RATIO 17.5; CALCIUM SERUM 8.8 mg/dL (8.4-10.2); CREATININE SERUM 0.4 mg/dL (0.6-1.4); GLOM FILT RATE Estimated 135.9 mL/min (>60); POTASSIUM 3.1 mmol/L (3.5-5.1)
[2017-02-13] MEDS ORDERED: OXYCODONE-APAP1 EACH PO (15:35)
== END 2017-02-04 21:27 | disposition home or self-care (01) ==
LOC: CED 02:10 → CSUR 15:00 → CPACUOF 15:41 → CSUR 15:41
PROVIDERS: Family Medicine; Nurse Practitioner; Urology
PROC: 0T768DZ Dilation of Right Ureter with Intraluminal Device, Via Natural or Artificial Opening Endoscopic (ICD-10-PCS; 2017-02-04)
PROC: 0TF68ZZ Fragmentation in Right Ureter, Via Natural or Artificial Opening Endoscopic (ICD-10-PCS; principal; 2017-02-04 14:00)
DX: N13.2 Hydronephrosis with renal and ureteral calculous obstruction (principal); N83.202 Unspecified ovarian cyst, left side; E87.6 Hypokalemia; I10 Essential (primary) hypertension; R00.0 Tachycardia, unspecified; D72.829 Elevated white blood cell count, unspecified; K20.9 Esophagitis, unspecified; F12.10 Cannabis abuse, uncomplicated; Z79.899 Other long term (current) drug therapy; Z90.49 Acquired absence of other specified parts of digestive tract; Z98.51 Tubal ligation status; Z88.5 Allergy status to narcotic agent
CPT/HCPCS: 36415; 74176; 80048; 80076; 80307; 81003; 82150; 82365; 83690; 83735; 84443; 84703; 85025; 87086; 88300; 93005; 96365; 96366; 96367; 96375; 99285; C1758; C1877; C9113; J0360; J0690; J0696; J1100; J1170; J1630; J1885; J2250; J2405; J2550; J3010; J3490

== ENCOUNTER 2017-02-12 20:27 | Emergency (ER) | payer OTHER ==
--- NOTE | ~2017-02-12 | CT4 ---
[facility] A Service of [facility] RADIOLOGY TEXT RESULTS PATIENT: GEENA HAWKINS LOCATION: SED : 84 UNIT #: [id number] AGE: [address]: Anil Sidhu MD SEX: F ORDER DR: [id number] [address] [address] [id number] E MR#: [id number] Acc #: [id number] NAME: GEENA HAWKINS : 1980 SEX: F STUDY DATE/TIME: 02/12/2017 21:33 UNIT: SED ROOM: STUDY DESCRIPTION: CT Abd and Pelv Wo Cont Attending Physician: Anil Sidhu M.D. Ordering Physician: Anil Sidhu M.D. Primary Care Physician: Ariana Mckeon M.D. MEDICAL IMAGING REPORT This report is preliminary unless electronic signature is present. EXAM CT of the abdomen and pelvis without contrast. INDICATIONS Right flank pain and difficulty urinating for 5 days. Kidney stent was removed February 09. TECHNIQUE CT scan of the abdomen and pelvis was performed without contrast. Coronal and sagittal reformatted images were obtained. This CT exam was performed with one or more of the following radiation dose reduction techniques: automatic exposure control, adjustment of mA and/or kV according to patient size, and iterative reconstruction. COMPARISON With 02/04/2017. FINDINGS The lung bases are clear. The liver is unremarkable. Cholecystectomy. The spleen is unremarkable. The left kidney is unremarkable. There is worsening right-sided hydronephrosis and hydroureter. There is stranding about the ureter. There is a 4 mm obstructing stone in the distal right ureter. The adrenal glands are unremarkable. Pancreas is unremarkable. Pelvis: 4 mm stone distal right ureter, as described. Colon is unremarkable. Normal appendix. Bone windows are unremarkable. IMPRESSION 1. There is a 4 mm stone in the distal right ureter. On the previous study, the stent was located in the mid right ureter. 2. There is worsening right-sided hydronephrosis and hydroureter and STS. [facility] A Service of [facility] RADIOLOGY TEXT RESULTS PATIENT: GEENA HAWKINS [place] [facility] [place] [birth year] [place] #: [id number] AGE: [address]: Anil Sidhu MD SEX: F ORDER DR: there is increased inflammatory stranding around the right ureter and the right kidney. Dictated by... Ankit Diaz M.D. THIS IS AN ELECTRONICALLY VERIFIED REPORT Ankit Diaz M.D. at 02/13/2017 7:45 PM ARS/maria luisa TD: 02/13/2017 11:27 JOB #: [id number] MEDICAL IMAGING REPORT Page 1 of 1
[2017-02-12 21:20] LABS: URINE SOURCE CLEAN CATCH
[2017-02-12 21:23] LABS: URINE APPEARANCE HAZY; URINE BILIRUBIN NEG (NEG); URINE BLOOD NEG (NEG); URINE COLOR YELLOW; URINE GLUCOSE NEG (NORM); URINE KETONE NEG (NEG); URINE LEUKOCYTE ESTERASE 1+ (NEG); URINE NITRATE NEG (NEG); URINE PROTEIN NEG (NEG); URINE UROBILINOGEN 0.2 MG/DL (NORM)
[2017-02-12 21:25] LABS: MICRO INDICATED? YES
[2017-02-12 21:29] LABS: CULTURE INDICATED? YES; URINE BACTERIA NEG (NEG); URINE SQUAMOUS EPITHELIAL CELL MODERATE /[HPF]; URINE WBC 25-50 /[HPF] (0-5)
[2017-02-12 21:30] LABS: BASOPHIL# 0.1 X10e3 (0-0.3); BASOPHIL% 1.2 % (0-2.5); EOSINOPHIL# 0.1 X10e3 (0-0.7); EOSINOPHIL% 1.2 % (0.0-7.0); HEMATOCRIT 35.7 % (35.0-45.0); HEMOGLOBIN 12.5 gm/dL (12.0-16.0); LYMPHOCYTE# 4.2 X10e3 (1.0-3.5); LYMPHOCYTE% 34.9 % (17.0-45.0); MEAN CORPUSCULAR HEMOGLOBIN 29.7 PG (28-34); MEAN PLATELET VOLUME 8.6 FL (6.5-11.5); MONOCYTE% 8.2 % (3.0-12.0); NEUTROPHIL# 6.5 X10e3 (1.5-7.1); NEUTROPHIL% 54.5 % (40-75); PLATELET COUNT 319 X10e3 (140-420); RED BLOOD COUNT 4.21 X10e (3.90-5.30); RED CELL DISTRIBUTION WIDTH 12.9 % (11.0-15.5); URINE CRYSTALS CALCIUM OXALATE /[HPF]; URINE MUCUS PRESENT
[2017-02-12 21:32] LABS: DIFF IND NO
[2017-02-12 21:39] LABS: BUN/CREATININE RATIO 18.57; CREATININE SERUM 0.7 mg/dL (0.6-1.4); POTASSIUM 3.5 mmol/L (3.5-5.1)
[2017-02-13] MEDS ORDERED: OXYCODONE-APAP1 EACH PO (15:35)
== END 2017-02-12 23:26 | disposition home or self-care (01) ==
LOC: SED 20:27
PROVIDERS: Emergency Medicine
DX: N20.1 Calculus of ureter (principal); I10 Essential (primary) hypertension; Z87.442 Personal history of urinary calculi; Z88.5 Allergy status to narcotic agent; Z79.899 Other long term (current) drug therapy
CPT/HCPCS: 36415; 74176; 80048; 81003; 84703; 85025; 87086; 96361; 96374; 96375; 99284; J1170; J2270; J2405

== ENCOUNTER → 2017-02-13 | Day surgery (SDC) | payer OTHER ==
[~2017-02-13] MED LIST changes: +METOPROLOL SUCC25 MG PO; +NORVASC2.5 MG PO; +OXYCODONE-APAP1 EACH PO
--- NOTE | ~2017-02-13 | OR ---
Unit #: [id number] #: [id number] Patient: GEENA HAWKINS [id number] [address] [address] [id number] O MR#: [id number] NAME: GEENA HAWKINS ROOM: Date of Procedure: 02/13/2017 Admission Date: 02/13/2017 Surgeon: Patrick Kennedy M.D. : 1980 Attending Physician: Patrick Kennedy M.D. Referring Physician: Patrick Kennedy M.D. Primary Care Physician: Ariana Mckeon M.D. OPERATIVE REPORT PREOPERATIVE DIAGNOSIS Ureteral stone. POSTOPERATIVE DIAGNOSIS Ureteral stone. PROCEDURES PERFORMED Cystoscopy, right ureteroscopy, basket extraction, stent placement. ANESTHESIA General. There was no string on the tether. DESCRIPTION OF PROCEDURE After informed consent, she was taken to the operating room, placed on general anesthetic and positioned in lithotomy. Her vagina and perineum were prepped and draped in usual sterile fashion. Cystoscopy was performed revealing a normal urethra and bladder. Inspection of bladder showed no tumors, no stones, no diverticula. The right ureteral orifice was somewhat edematous. A Sensor wire was placed into the orifice under fluoroscopy and the stone was visible under fluoroscopy. The orifice and ureter were dilated gently with catheters. Ureteroscopy was performed. The fragment was seen in the distal ureter. A basket was used and the stone was extracted without difficulty. Because of the edema, I did place a new stent, a 5 x 24. There was good coil in the bladder and collecting system. The tether was removed. She can return to see me next Thursday for stent removal with cystoscopy. She tolerated the procedure well. Dictated by... Patrick Kennedy M.D. TLB/modl TD: 02/14/2017 14:52 JOB #: [id number] Unit #: [id number] #: [id number] Patient: GEENA HAWKINS OPERATIVE REPORT Page 1 of 1 X Patrick Kennedy MD PROCEDURE OPERATIVE NOTE
--- NOTE | ~2017-02-13 | EKG ---
PATIENT: GEENA HAWKINS UNIT #: [id number] Ventricular Rate: 83 BPM Atrial Rate: 83 BPM P-R Interval: 134 ms QRS Duration: 76 ms Q-T Interval: 378 ms QTC Calculation(Bezet): 444 ms P [place]: 14 degrees Calculated R [place]: 42 degrees Calculated T [place]: 25 degrees Diagnosis Line: Normal sinus rhythm Diagnosis Line: Normal ECG Diagnosis Line: When compared with ECG of 04-FEB-2017 12:05, Diagnosis Line: No significant change was found Diagnosis Line: Confirmed by JEANIE CISNEROS MD ([id number]) on 02/18/2017 Diagnosis Line: 2:37:27 PM INTERPRETING MD: AMELIA GONZALES
[2017-02-13 16:28] LABS: BUN/CREATININE RATIO 11.25; CALCIUM SERUM 8.6 mg/dL (8.4-10.2); CREATININE SERUM 0.8 mg/dL (0.6-1.4); GLOM FILT RATE Estimated 96.3 mL/min (>60); POTASSIUM 3.3 mmol/L (3.5-5.1)
== END | disposition home or self-care (01) ==
LOC: CSUR 15:17
PROVIDERS: Urology
DX: N13.2 Hydronephrosis with renal and ureteral calculous obstruction (principal); I10 Essential (primary) hypertension; Z88.5 Allergy status to narcotic agent; Z87.442 Personal history of urinary calculi; Z98.51 Tubal ligation status; Z90.49 Acquired absence of other specified parts of digestive tract; Z98.890 Other specified postprocedural states; Z79.899 Other long term (current) drug therapy
CPT/HCPCS: 80048; 82365; 84703; 88300; 93005; C1758; C2617; J0690; J1885; J2250; J2405; J3010

== ENCOUNTER 2017-04-02 09:41 | Emergency (ER) | payer OTHER ==
--- NOTE | ~2017-04-02 | CT4 ---
[facility] A Service of [facility] RADIOLOGY TEXT RESULTS PATIENT: GEENA HAWKINS LOCATION: [facility] : 82 UNIT #: [id number] AGE: [address]: Farshad Oliver MD SEX: F ORDER DR: [id number] [facility] [address] [facility] [place] [place], [place] [address] [id number] E MR#: [id number] #: [id number] NAME: GEENA HAWKINS : 1980 SEX: F STUDY DATE/TIME: 04/02/2017 12:06 UNIT: [facility] ROOM: STUDY DESCRIPTION: CT Abd and Pelv Wo Cont Attending Physician: Regan Oliver M.D. Referring Physician: José Miguel Deleon M.D. Ordering Physician: Ed Ned Soto M.D. Primary Care Physician: Ariana Mckeon M.D. MEDICAL IMAGING REPORT This report is preliminary unless electronic signature is present EXAM CT abdomen and pelvis without contrast. HISTORY Right-sided flank pain, nausea, vomiting since this morning, kidney stone surgery 1 month ago. TECHNIQUE Axial images performed through the abdomen and pelvis without contrast. Multiplanar reconstructed images reviewed at a workstation. This CT exam was performed with one or more of the following radiation dose reduction techniques: automatic exposure control, adjustment of mA and/or kV according to patient size, and iterative reconstruction. FINDINGS ABDOMEN: Lung bases unremarkable. Liver and spleen appear normal. Gallbladder surgically absent. Pancreas, kidneys and adrenal glands appear normal. Visualized GI tract unremarkable. Appendix not clearly identified but no focal inflammatory change noted. PELVIS: Bladder, uterus and adnexa unremarkable. Tubal ligation clips noted. Osseous structures and soft tissues unremarkable. IMPRESSION No acute intraabdominal or intrapelvic pathology identified. In particular, no evidence of renal stone or obstruction. Dictated by... Tressa Diaz M.D. THIS IS AN ELECTRONICALLY VERIFIED REPORT Tressa Diaz M.D. at 04/03/2017 5:03 PM [facility] A Service of [facility] RADIOLOGY TEXT RESULTS PATIENT: GEE[facility] HAWKINS [id number] [birth year] UNIT #: [id number] AGE: [address]: Farshad Oliver MD SEX: F ORDER DR: Gary TD: 04/02/2017 17:52 JOB #: [id number] MEDICAL IMAGING REPORT Page 1 of 1 COPY
[~2017-04-02 09:41] MED LIST changes: -METOPROLOL SUCC25 MG PO; -NORVASC2.5 MG PO
[2017-04-02 11:08] LABS: BASOPHIL# 0.1 X10e3 (0-0.3); BASOPHIL% 0.4 % (0-2.5); HEMATOCRIT 46.7 % (35.0-45.0); HEMOGLOBIN 15.7 gm/dL (12.0-16.0); LYMPHOCYTE# 3.5 X10e3 (1.0-3.5); LYMPHOCYTE% 12.1 % (17.0-45.0); MEAN CELL VOLUME 85.1 FL (83-96); MEAN CORPUSCULAR HEMOGLOBIN 28.6 PG (28-34); MEAN CORPUSCULAR HGB CONC 33.6 g/dL (30-36); MEAN PLATELET VOLUME 10.1 FL (6.5-11.5); MONOCYTE# 0.8 X10e3 (0-1.0); MONOCYTE% 2.8 % (3.0-12.0); NEUTROPHIL# 24.2 X10e3 (1.5-7.1); NEUTROPHIL% 84.7 % (40-75); PLATELET COUNT 364 X10e3 (140-420); RED BLOOD COUNT 5.49 X10e (3.90-5.30); RED CELL DISTRIBUTION WIDTH 12.8 % (11.0-15.5); WHITE BLOOD COUNT 28.6 X10e3 (4.0-10.5)
[2017-04-02 11:09] LABS: DIFF IND YES
[2017-04-02 11:27] LABS: ALBUMIN SERUM 4.9 g/dL (3.5-5.0); BILIRUBIN, DIRECT 0.3 mg/dL (0.0-0.2); BILIRUBIN,INDIRECT 0.5 mg/dL (0.0-0.9); BILIRUBIN,TOTAL 0.8 mg/dL (0.2-2.0); BUN/CREATININE RATIO 11.25; CALCIUM SERUM 9.3 mg/dL (8.4-10.2); CREATININE SERUM 0.8 mg/dL (0.6-1.4); GLOM FILT RATE Estimated 96.3 mL/min (>60); POTASSIUM 3.1 mmol/L (3.5-5.1); PROTEIN TOTAL SERUM 8.1 g/dL (6.0-8.3)
[2017-04-02 11:27] LABS: URINE SOURCE CLEAN CATCH
[2017-04-02 11:35] LABS: PLATELET ESTIMATE NORMAL (NORMAL); TEAR DROP CELLS PRESENT
[2017-04-02 11:35] LABS: URINE APPEARANCE CLEAR; URINE BILIRUBIN NEG (NEG); URINE BLOOD TRACE (NEG); URINE COLOR YELLOW; URINE GLUCOSE 500 MG/DL (NEG); URINE KETONE 2+ (NEG); URINE LEUKOCYTE ESTERASE NEG (NEG); URINE NITRATE NEG (NEG); URINE PROTEIN TRACE (NEG); URINE SPECIFIC GRAVITY 1.016 (1.003-1.035); URINE UROBILINOGEN 0.2 MG/DL (NEG)
[2017-04-02 11:38] LABS: URBCS1 AUWI 0-2 /[HPF] (0-2); URINE BACTERIA AUWI NEG (NEGATIVE); URINE SQUAMOUS EPITHELIAL CELL FEW /[HPF]; UWBCS1 AUWI 0-2 (0-5)
[2017-04-02 11:43] LABS: CULTURE INDICATED? NO
[2017-04-02 11:45] LABS: AMPHETAMINE NEG (NEG); BARBITURATES NEG (NEG); BENZODIAZEPINES NEG (NEG); COCAINE NEG (NEG); MARIJUANA POS (NEG); OPIATES NEG (NEG); TRICYCLIC ANTIDEPRESSANTS NEG (NEG); U METHADONE NEG (NEG)
[2017-04-02 14:51] LABS: ARTERIAL BLD GAS O2 SATURATION 94.9 % (90.0-100.0); ARTERIAL BLOOD GAS CARBOXY HB 0.8 %sat (0.0-9.0); ARTERIAL BLOOD GAS HCO3 22.4 mmol/L; ARTERIAL BLOOD GAS MET HB 0.9 %sat (0.0-2.0); ARTERIAL BLOOD GAS PO2 80.5 mmHg (80.0-100); ARTERIAL BLOOD GAS pH 7.415 (7.350-7.450)
[2017-04-02 14:52] LABS: ARTERIAL BLOOD GAS ALLEN TEST NORMAL; ARTERIAL BLOOD GAS ART SITE LEFT RADIAL; ARTERIAL DRAW? YES
== END 2017-04-02 17:32 | disposition home or self-care (01) ==
LOC: CED 09:41
PROVIDERS: Emergency Medicine; Physician Assistant
DX: R10.84 Generalized abdominal pain (principal); R11.10 Vomiting, unspecified; Z87.442 Personal history of urinary calculi; I10 Essential (primary) hypertension; Z88.8 Allergy status to other drugs, medicaments and biological substances; Z98.890 Other specified postprocedural states
CPT/HCPCS: 36415; 36600; 74176; 80048; 80076; 80307; 81003; 82803; 83690; 84703; 85025; 96361; 96374; 96375; 99284; J1170; J1885; J2405; J2550; J2765

== ENCOUNTER 2017-04-03 08:52 | Inpatient (IN) | payer OTHER ==
[~2017-04-03] VITALS: Ht 149.9 cm; Wt 59.0 kg
--- NOTE | ~2017-04-03 | HP ---
Unit #: [id number] #: [id number] Patient: GEENA HAWKINS [id number] [facility] [address] [place], [place] [address] [id number] I MR#: [id number] NAME: GEENA HAWKINS ROOM: [facility] Age: 36 Sex: F Admission Date: 04/03/2017 : 1980 Attending Physician: Viki Kuhn M.D. Primary Care Physician: Ariana Mckeon M.D. HISTORY AND PHYSICAL CHIEF COMPLAINT Nausea, vomiting. HPI The patient is a 36-year-old female with past medical history of cannabis hyperemesis syndrome, chronic leukocytosis, hypertension, esophagitis, nephrolithiasis who presented to [facility] for evaluation of the above. The patient states that she has had about 24 hours of nausea, vomiting, and abdominal pain. The abdominal pain is "everywhere." She describes it as "pain." There are no exacerbating or alleviating factors. She has had more than 10 bouts of nonbloody emesis. She denies any diarrhea. Her last bowel movement was a few days ago. She denies any fever. No cough or cold symptoms. No urinary symptoms. In the emergency department at [facility], the patient's blood pressure was 186/115. She states that she has been unable to tolerate her hydralazine. Potassium was 2.9. Urine beta HCG was negative. Of note, the patient was seen at [facility] emergency department on April 02, 2017, for the same problem. A CT of abdomen and pelvis was done at that time and showed no acute intraabdominal or intrapelvic pathology. Today, in the emergency department, she received 2 liters of normal saline, 8 mg of Zofran, 1.5 mg of Ativan, 50 mg of Benadryl, 40 mEq of potassium, 12.5 mg of Phenergan, 10 mg of Reglan, and 10 mg of labetalol. She was sent to [place] for admission. PAST MEDICAL HISTORY 1. Admission to [facility] February 04, 2017, for right ureteral stone. She underwent cystoscopy with right ureteroscopy, basket extraction, and stent placement. The patient states that she has subsequently had the stent removed. 2. Hypertension. 3. 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 4. Cannabis hyperemesis syndrome. 5. Esophagitis. 6. Nephrolithiasis. PAST SURGICAL HISTORY 1. C section. 2. Bilateral tubal ligation. 3. Bone marrow biopsy. 4. Cholecystectomy. 5. Cystoscopy with ureteral stent placement. Unit #: [id number] #: [id number] Patient: GEENA HAWKINS SOCIAL HISTORY The patient states that her last marijuana use was a few weeks ago. There is no alcohol use. FAMILY HISTORY Notable for hypertension. ALLERGIES Morphine. HOME MEDICATION(S) Hydralazine 50 mg t.i.d. REVIEW OF SYSTEMS A complete review of systems is negative, except as indicated in the HPI. DIAGNOSTIC TESTS IMAGING: CT of the abdomen and pelvis from April 02, 2017, shows no acute abnormality. LABORATORY: Comprehensive metabolic panel from today shows a potassium of 2.9, CO2 is 19, anion gap is 15, glucose 161, total protein 8.4, albumin is 5.2. Lipase is 30. Urine beta HCG is negative. Urinalysis notable for 3+ protein, 3+ ketones, 2+ blood with negative bacteria, and 0-2 red blood cells. Complete blood count notable for white blood cell count of 25.2. PHYSICAL EXAMINATION VITAL SIGNS: Temperature is 99.1; pulse 56; respirations 16; blood pressure 186/114, most recently 131/89; oxygen saturation 100% on room air. GENERAL: The patient is a female who is awake and alert. No acute distress. HEENT: The head is atraumatic. Mucous membranes are dry. NECK: Supple. Trachea is midline. CARDIOVASCULAR: Regular rate and rhythm. LUNGS: Clear to auscultation bilaterally with no increased work of breathing. ABDOMEN: Soft. She is mildly tender to palpation throughout. Bowel sounds are present in all four quadrants. EXTREMITIES: Nontender with no pedal edema. NEURO: The patient is awake and alert. She follows commands. PSYCH: Mood and affect are normal. The patient is cooperative. SKIN: Skin of examined areas is warm and dry. ASSESSMENT The patient is a 36-year-old female with: 1. Intractable nausea and vomiting, likely due to cannabis hyperemesis. 2. Hypokalemia with potassium of 2.9. The patient received 40 mEq of potassium in the emergency department. 3. Leukocytosis, chronic. The patient's white blood cell count was 28.6 yesterday. It is 25.2 today. The patient had a bone marrow biopsy September 14, 2015, that showed normal cellular bone marrow with mild reactive granulocytic hyperplasia. 4. Hypertension. 5. History of cannabis hyperemesis syndrome. 6. History of nephrolithiasis. Unit #: [id number] #: [id number] Patient: GEENA HAWKINS 1. Admit for observation. 2. Normal saline at 125 mL/hour. 3. Advance diet to clear liquids as tolerated. 4. P.R.N. Phenergan. 5. P.R.N. Zofran. 6. Check magnesium level. 7. Potassium/magnesium protocol. 8. Repeat labs in the morning including magnesium. 9. SCDs for DVT prophylaxis. 10. Additional workup and consultants based on above. Dictated by Sonya Velásquez/maria luisa TD: 04/04/2017 06:44 JOB #: [id number] HISTORY AND PHYSICAL Page 1 of 1 X Viki Kuhn MD X HISTORY AND PHYSICAL
--- NOTE | ~2017-04-03 | EKG ---
PATIENT: GEENA HAWKINS UNIT #: [id number] Ventricular Rate: 68 BPM Atrial Rate: 68 BPM P-R Interval: 142 ms QRS Duration: 92 ms Q-T Interval: 412 ms QTC Calculation(Bezet): 438 ms P [place]: 68 degrees Calculated R [place]: 71 degrees Calculated T [place]: 64 degrees Diagnosis Line: Normal sinus rhythm with sinus arrhythmia Diagnosis Line: Normal ECG Diagnosis Line: No previous ECGs available Diagnosis Line: Confirmed by ZANDER TIRADO MD ([id number]) on Diagnosis Line: 04/05/2017 4:48:02 PM INTERPRETING MD: RAJIV
--- NOTE | ~2017-04-03 | CO ---
Unit #: [id number] #: [id number] Patient: GEENA HAWKINS [id number] [facility] [place] [facility]. [place], [place] [address] [id number] I MR#: [id number] NAME: GEENA HAWKINS ROOM: [facility] Age: 36 Sex: F Admission Date: 04/03/2017 : 1980 Attending Physician: Eliana Marcus M.D. Primary Care Physician: Ariana Mckeon M.D. Consultation Date: 04/06/2017 CONSULTATION REPORT REASON FOR CONSULTATION Persistent vomiting. HISTORY OF PRESENTING ILLNESS Ms. Hawkins is a 36-year-old lady. She presented with recurrent vomiting going on for 24 hours. She has been here for last 48 hours and today actually she feels somewhat better. Vomiting was not bloody. There was no fever. No chills. This is an upper abdominal pain. There is no history of blood in the stool or diarrhea or black stools. The patient has had recurrent similar symptoms in the past and previous workup has been negative. She was diagnosed with hyperemesis secondary to cannabis and has been told to stop marijuana use. She has been positive for marijuana every single admission in last 2 years including this one. PAST MEDICAL HISTORY 1. As above. Also with chronic leukocytosis secondary to most likely marijuana. Hematology evaluation previously has been done, which was negative. 2. History of nephrolithiasis, status post ureteric catheterizations, seems to have resolved. She is status post cholecystectomy. SOCIAL HISTORY Continues to do marijuana. Denies any alcohol. FAMILY HISTORY Noncontributory. ALLERGIES To morphine. MEDICATIONS At home, hydralazine. REVIEW OF SYSTEMS Complete 10-point review of systems was done, which is unremarkable other than as mentioned above. PHYSICAL EXAMINATION VITAL SIGNS: Stable. Afebrile. GENERAL: No acute distress. HEENT: Pupils equal and reactive. Sclerae anicteric. Oral mucosa moist. NECK: No JVD. No lymphadenopathy. CHEST: Clear to auscultation bilaterally. Unit #: [id number] #: [id number] Patient: GEENA HAWKINS CARDIOVASCULAR: Regular rate and rhythm. No murmurs. ABDOMEN: Soft, nontender, and nondistended. EXTREMITIES: Without clubbing, cyanosis, or edema. NEUROLOGIC: Intact. SKIN: Warm and dry. DIAGNOSTIC STUDIES IMAGING STUDIES: CT of the abdomen and pelvis shows unremarkable. Of note, she has had at least 7 CT scans done within last 3 months every time to the emergency room evaluation. LABORATORY RESULTS: Chemistries show sodium of 133, potassium of 3.1. LFTs are normal. Amylase and lipase are normal. Coags are normal. CBC with a white count of 17,000 was as high as 25,000. Hemoglobin, hematocrit, and platelet counts are within normal limits. ASSESSMENT AND PLAN 1. The patient with recurrent hyperemesis most likely related to cannabis hyperemesis syndrome, symptomatic treatment. She seems to be somewhat better. She has had 2 upper endoscopy within last 3 years, which were unremarkable. At this time, I would recommend continuing symptomatic treatment and advancing the diet gradually and when she feels better to be discharged home. 2. Hypokalemia, replace. 3. Ureteric stones, resolved. 4. Chronic leukocytosis, most likely secondary to cannabinoid use. Thank you, Dr. Ashby for this interesting consult. We will follow along. Dictated by... Benito Art M.D. EARLE/yoselin TD: 04/06/2017 17:43 JOB #: [id number] CONSULTATION REPORT Page 1 of 1 X Benito Art MD CONSULTATION REPORT
--- NOTE | ~2017-04-03 | CO ---
Unit #: [id number] #: [id number] Patient: GEENA HAWKINS [id number] [address] [place], [place] [address] [id number] MR#: [id number] NAME: GEENA HAWKINS ROOM: [facility] Age: 36 Sex: F Admission Date: 04/03/2017 : 1980 Attending Physician: Nancy Guzman M.D. Primary Care Physician: Ariana Mckeon M.D. Consultation Date: 04/04/2017 CONSULTATION REPORT REASON FOR CONSULTATION Poorly controlled hypertension and abnormal EKG. HISTORY OF PRESENT ILLNESS This is a 36-year-old white female with known history of having hyperemesis syndrome, possibly cause from persistent use of marijuana. She also has chronic leukocytosis and they feel like it is also from marijuana use. She has been diagnosed with hypertension for about 4 or 5 years. She had a recent nonobstructive kidney stone back in January of this year. She came in with nausea, vomiting, and abdominal pain. She denies any fever or chills. No diarrhea. Denies any chest pain, palpitations, or dizziness. In the emergency room, the patient's blood pressure was 186/115, her temperature was 99.1, O2 saturation was 100% on room air. EKG shows sinus rhythm. She does have some peaked T-waves, which the patient's potassium is as low as 2.9. No acute ischemic changes on EKG. The patient had a CT of the abdomen and pelvis. It did not show anything acute. The patient's WBCs were 25.2, which they feel like that is from marijuana use. Her drug screen was positive for marijuana, negative beta hCG. The patient was given, in the emergency room, some IV labetalol 10 mg along with IV Ativan and Zofran and given supplemental potassium 40 mEq. She was also started on IV fluids. With her poorly controlled hypertension and appeared to have some abnormalities on her EKG. Cardiology consult to assist with evaluation and management. According to the patient, she has never been seen by a electronic publisher. Denies any chest pain; pain in her neck, bilateral jaws, shoulders, arms, or elbow. Denies any palpitations. No dizziness, presyncope, or syncope. Denies any increased lower extremity edema. No history reported of a catheterization or a stress test. PAST MEDICAL HISTORY 1. History of cannabis hyperemesis syndrome. 2. History of chronic leukocytosis, questionably likely marijuana use. 3. Hypertension. 4. History of esophagitis. 5. History of kidney stones. 6. History of lithotripsy and stent placement, that was in 01/2017. 7. Positive marijuana use. 8. Diabetes mellitus and hyperlipidemia. 9. Strong family history of CAD. Father had [place], has stents, he is living. No stress or cardiac cath. PAST SURGICAL HISTORY 1. section. Unit #: [id number] #: [id number] Patient: GEENA HAWKINS 2. Bilateral tubal ligation. 3. Bone marrow biopsy. 4. Cholecystectomy. 5. Cystoscopy with ureteral stent placement and had laser lithotripsy. HOME MEDICATIONS Hydralazine 50 mg three times daily. BODY AFTER ALLERGIES ALLERGIES Morphine. SOCIAL HISTORY She lives with her family. She states her last marijuana use was a few days ago. None recent. No alcohol or illicit drug abuse. FAMILY HISTORY Father had CAD, [place], and stents. He is living and doing well. Mother is doing fine. REVIEW OF SYSTEMS See details in HPI. PHYSICAL EXAMINATION GENERAL: Ms. Hawkins is a 36-year-old white female, in no acute respiratory distress. She is awake, alert, and oriented. VITAL SIGNS: Blood pressure this morning is 162/107, heart rate is 100, respirations 18, and temperature 98.6, and O2 saturations 100% on room air. NECK: Trachea midline. No thyromegaly or lymphadenopathy. Normal carotid upstrokes. No jugular venous distention. HEART: S1 and S2. Regular rate and rhythm. No clicks, murmurs, or rubs. LUNGS: Diminished, otherwise clear. ABDOMEN: Soft. Tender with deep palpation in all areas. EXTREMITIES: Pedal pulses are palpable. No pedal edema. DIAGNOSTIC DATA LABORATORY RESULTS: Glucose is 161, BUN 10, creatinine 0.7, eGFR is 113, sodium 136, potassium last night was 2.9. Repeat labs are pending, calcium is 9.5, magnesium is 1.8, total protein 8.4, bilirubin total 1.0. AST is 20, ALT 19, alkaline phosphatase is 84, lipase is 30. WBC is 19.2. Hemoglobin 14.0, hematocrit 40.6, and platelets of 244. Urine tox screen positive for marijuana. Urinalysis; 3+ protein, 3+ ketone, 2+ blood, wbc's 0.2. IMAGING STUDIES: CT of abdomen and pelvis showed nothing acute. No evidence of renal stone or obstruction. CARDIOVASCULAR STUDIES: EKG shows normal sinus rhythm with peak T-waves in anterior lateral leads, indication of left ventricular hypertrophy, poor R-wave progression. IMPRESSION 1. Nausea, vomiting, abdominal pain, history of hyperemesis syndrome. 2. Hypokalemia. 3. Poorly controlled hypertension. 4. Chronic leukocytosis, questionable likely secondary to marijuana use. 5. Recent kidney stones, status post lithotripsy and stent placement. Unit #: [id number] #: [id number] Patient: GEENA HAWKINS 6. Marijuana use. 7. Questionable abnormal EKG. PLAN 1. Cardiology consult to assist with evaluation and management. 2. The patient's blood pressure has been elevated throughout this admission. The patient states it always gets elevated when she is not able to take her blood pressure medication. She did have some IV labetalol after admission and her blood pressure came down 121/68, so we will put her on beta-kathia, metoprolol 25 mg 1 tablet p.o. b.i.d. Looking back on her previous records, she was on that dose in the past. We will also continue on the hydralazine and we will make any adjustments as needed. 3. EKG changes likely to her hypokalemia. We will continue to monitor. There is no signs or symptoms of acute congestive heart failure or unstable angina. Her potassium is being supplemented and her magnesium, she is on magnesium protocol. 4. Encourage the patient to completely quit marijuana use. She states she has not done marijuana a few days. 5. Further recommendations pending per Dr. Lopez. 6. We will add TSH to the next labs that will be drawn after her potassium and magnesium have been supplemented this morning. Thank you very much for allowing us to assist in her care. Dictated by... Kajal Thompson A.P.R.N. for Chevy Lopez M.D. BOBBY/yoselin TD: 04/05/2017 05:59 JOB #: [id number] CONSULTATION REPORT Page 1 of 1 X Kajal Thompson APRN CONSULTATION REPORT
--- NOTE | ~2017-04-03 | DS ---
Unit #: [id number] #: [id number] Patient: GEENA HAWKINS [id number] [address] [place], [place] [address] [id number] MR#: [id number] NAME: GEENA HAWKINS ROOM: [facility] Age: 36 Sex: F Admission Date: 04/03/2017 : 1980 Discharge Date: 04/08/2017 Attending Physician: Eliana Marcus M.D. Primary Care Physician: Ariana Mckeon M.D. DISCHARGE SUMMARY DISCHARGE DIAGNOSES 1. Nausea and vomiting which have resolved. 2. History of cannabis hyperemesis syndrome. 3. Chronic leukocytosis. 4. Hypertension. 5. Hypokalemia. DISCHARGE MEDICATIONS 1. Spironolactone 25 mg p.o. daily. 2. Norvasc 2.5 mg p.o. b.i.d. 3. Metoprolol 25 mg p.o. b.i.d. 4. Tylenol p.r.n. CONSULTS ON THIS HOSPITAL STAY 1. Dr. Francis, cardiology. 2. Dr. Art, GI. LABS AND DIAGNOSTICS AND PROCEDURES ON THIS HOSPITAL STAY CT abdomen and pelvis which was unremarkable. HISTORY OF PRESENT HOSPITAL STAY Please refer to H and P done by my colleague for initial presentation on this female. ACTIVE PROBLEMS AND DIAGNOSES Nausea/vomiting secondary to cannabis hyperemesis syndrome which was treated with symptomatic management with the p.r.n. Zofran and Phenergan along with the IV fluids, status post evaluation per GI. Currently her symptoms resolved. Stable to be discharged. Hypokalemia: Had been replaced. Being discharged on spironolactone and discharge day potassium 4.1. Chronic leukocytosis: Discharge date white count 16.7 which is around her baseline. Hypertension, stable: Discharge date BP 114/78. Status post evaluation per Cardiology. See discharge med rec as above. DISPOSITION Going home. FOLLOWUP 1. Outpatient followup with the primary care physician in two to three Unit #: [id number] #: [id number] Patient: GEENA HAWKINS days. 2. Outpatient followup with the GI. Dictated by... Adalberto Tejeda M.D. OC/cf TD: 04/08/2017 17:12 JOB #: [id number] DISCHARGE SUMMARY Page 1 of 1 X Adalberto Tejeda MD DISCHARGE SUMMARY
[2017-04-03 09:28] LABS: URINE APPEARANCE CLEAR; URINE BILIRUBIN POS (NEG); URINE BLOOD 2+ (NEG); URINE COLOR YELLOW; URINE GLUCOSE NEG (NORM); URINE LEUKOCYTE ESTERASE NEG (NEG); URINE NITRATE NEG (NEG); URINE PROTEIN 3+ (NEG); URINE SOURCE CLEAN CATCH; URINE SPECIFIC GRAVITY >=1.030 (1.003-1.035); URINE UROBILINOGEN 0.2 MG/DL (NORM)
[2017-04-03 09:29] LABS: BASOPHIL# 0.1 X10e3 (0-0.3); BASOPHIL% 0.2 % (0-2.5); EOSINOPHIL% 0.1 % (0.0-7.0); HEMATOCRIT 46.2 % (35.0-45.0); HEMOGLOBIN 16.2 gm/dL (12.0-16.0); LYMPHOCYTE# 2.8 X10e3 (1.0-3.5); LYMPHOCYTE% 11.3 % (17.0-45.0); MEAN CELL VOLUME 84.5 FL (83-96); MEAN CORPUSCULAR HEMOGLOBIN 29.6 PG (28-34); MEAN CORPUSCULAR HGB CONC 35.1 g/dL (30-36); MEAN PLATELET VOLUME 9.3 FL (6.5-11.5); MONOCYTE# 1.3 X10e3 (0-1.0); MONOCYTE% 5.2 % (3.0-12.0); NEUTROPHIL% 83.2 % (40-75); PLATELET COUNT 390 X10e3 (140-420); RED BLOOD COUNT 5.47 X10e (3.90-5.30); RED CELL DISTRIBUTION WIDTH 12.9 % (11.0-15.5); WHITE BLOOD COUNT 25.2 X10e3 (4.0-10.5)
[2017-04-03 09:30] LABS: DIFF IND NO
[2017-04-03 09:31] LABS: MICRO INDICATED? YES; URINE KETONE 3+ (NEG)
[2017-04-03 09:53] LABS: CULTURE INDICATED? NO; URINE BACTERIA NEG (NEG); URINE RBC 0-2 /[HPF] (0-2); URINE SQUAMOUS EPITHELIAL CELL OCCAS /[HPF]; URINE WBC NEG /[HPF] (0-5)
[2017-04-03 10:06] LABS: ALBUMIN SERUM 5.2 g/dL (3.5-5.0); BILIRUBIN, DIRECT 0.1 mg/dL (0.0-0.2); BILIRUBIN,INDIRECT 0.9 mg/dL (0.0-0.9); BUN/CREATININE RATIO 14.28; CALCIUM SERUM 9.5 mg/dL (8.4-10.2); CREATININE SERUM 0.7 mg/dL (0.6-1.4); PROTEIN TOTAL SERUM 8.4 g/dL (6.0-8.3)
[2017-04-03 10:07] LABS: POTASSIUM 2.9 mmol/L (3.5-5.1)
[2017-04-04 04:15] LABS: BASOPHIL% 0.2 % (0-2.5); HEMATOCRIT 40.6 % (35.0-45.0); LYMPHOCYTE# 4.9 X10e3 (1.0-3.5); LYMPHOCYTE% 25.5 % (17.0-45.0); MEAN CELL VOLUME 85.4 FL (83-96); MEAN CORPUSCULAR HEMOGLOBIN 29.3 PG (28-34); MEAN CORPUSCULAR HGB CONC 34.3 g/dL (30-36); MEAN PLATELET VOLUME 10.3 FL (6.5-11.5); MONOCYTE% 5.5 % (3.0-12.0); NEUTROPHIL# 13.2 X10e3 (1.5-7.1); NEUTROPHIL% 68.8 % (40-75); PLATELET COUNT 244 X10e3 (140-420); RED BLOOD COUNT 4.76 X10e (3.90-5.30); RED CELL DISTRIBUTION WIDTH 13.4 % (11.0-15.5); WHITE BLOOD COUNT 19.2 X10e3 (4.0-10.5)
[2017-04-04 04:19] LABS: DIFF IND NO
[2017-04-04 10:53] LABS: ALBUMIN SERUM 4.3 g/dL (3.5-5.0); CREATININE SERUM 0.5 mg/dL (0.6-1.4); GLOM FILT RATE Estimated 126.3 mL/min (>60); MAGNESIUM 1.8 mg/dL (1.6-3.0); POTASSIUM 3.4 mmol/L (3.5-5.1); PROTEIN TOTAL SERUM 7.1 g/dL (6.0-8.3)
[2017-04-05 03:21] LABS: HEMATOCRIT 44.2 % (35.0-45.0); HEMOGLOBIN 15.9 gm/dL (12.0-16.0); MEAN CELL VOLUME 83.1 FL (83-96); MEAN CORPUSCULAR HEMOGLOBIN 29.9 PG (28-34); MEAN CORPUSCULAR HGB CONC 35.9 g/dL (30-36); MEAN PLATELET VOLUME 9.7 FL (6.5-11.5); RED BLOOD COUNT 5.32 X10e (3.90-5.30); RED CELL DISTRIBUTION WIDTH 13.6 % (11.0-15.5); WHITE BLOOD COUNT 22.2 X10e3 (4.0-10.5)
[2017-04-05 07:15] LABS: BUN/CREATININE RATIO 12.85; CALCIUM SERUM 9.4 mg/dL (8.4-10.2); CREATININE SERUM 0.7 mg/dL (0.6-1.4); POTASSIUM 3.3 mmol/L (3.5-5.1)
[2017-04-06 04:19] LABS: BASOPHIL% 0.1 % (0-2.5); HEMATOCRIT 45.5 % (35.0-45.0); LYMPHOCYTE# 2.2 X10e3 (1.0-3.5); LYMPHOCYTE% 12.4 % (17.0-45.0); MEAN CELL VOLUME 83.4 FL (83-96); MEAN CORPUSCULAR HEMOGLOBIN 29.3 PG (28-34); MEAN CORPUSCULAR HGB CONC 35.1 g/dL (30-36); MEAN PLATELET VOLUME 9.2 FL (6.5-11.5); MONOCYTE# 1.1 X10e3 (0-1.0); MONOCYTE% 6.3 % (3.0-12.0); NEUTROPHIL# 14.3 X10e3 (1.5-7.1); NEUTROPHIL% 81.2 % (40-75); PLATELET COUNT 341 X10e3 (140-420); RED BLOOD COUNT 5.46 X10e (3.90-5.30); RED CELL DISTRIBUTION WIDTH 12.6 % (11.0-15.5); WHITE BLOOD COUNT 17.6 X10e3 (4.0-10.5)
[2017-04-06 04:21] LABS: DIFF IND YES
[2017-04-06 04:37] LABS: BUN/CREATININE RATIO 15.71; CALCIUM SERUM 9.3 mg/dL (8.4-10.2); CREATININE SERUM 0.7 mg/dL (0.6-1.4); PLATELET ESTIMATE NORMAL (NORMAL); POTASSIUM 3.3 mmol/L (3.5-5.1); RBC NORMAL YES
[2017-04-07 03:56] LABS: ALBUMIN SERUM 3.7 g/dL (3.5-5.0); BILIRUBIN,TOTAL 0.9 mg/dL (0.2-2.0); CALCIUM SERUM 8.4 mg/dL (8.4-10.2); CREATININE SERUM 0.5 mg/dL (0.6-1.4); GLOM FILT RATE Estimated 126.3 mL/min (>60); PROTEIN TOTAL SERUM 6.3 g/dL (6.0-8.3)
[2017-04-07 04:07] LABS: POTASSIUM 2.8 mmol/L (3.5-5.1)
[2017-04-07 04:13] LABS: BASOPHIL% 0.2 % (0-2.5); DIFF IND NO; EOSINOPHIL% 0.1 % (0.0-7.0); HEMATOCRIT 42.7 % (35.0-45.0); HEMOGLOBIN 15.1 gm/dL (12.0-16.0); LYMPHOCYTE# 4.7 X10e3 (1.0-3.5); MEAN CELL VOLUME 83.2 FL (83-96); MEAN CORPUSCULAR HEMOGLOBIN 29.4 PG (28-34); MEAN CORPUSCULAR HGB CONC 35.4 g/dL (30-36); MONOCYTE# 1.6 X10e3 (0-1.0); MONOCYTE% 9.3 % (3.0-12.0); NEUTROPHIL# 10.4 X10e3 (1.5-7.1); NEUTROPHIL% 62.4 % (40-75); PLATELET COUNT 313 X10e3 (140-420); RED BLOOD COUNT 5.13 X10e (3.90-5.30); RED CELL DISTRIBUTION WIDTH 12.7 % (11.0-15.5); WHITE BLOOD COUNT 16.7 X10e3 (4.0-10.5)
[2017-04-08 04:02] LABS: BUN/CREATININE RATIO 16.66; CALCIUM SERUM 8.7 mg/dL (8.4-10.2); CREATININE SERUM 0.6 mg/dL (0.6-1.4); GLOM FILT RATE Estimated 118.9 mL/min (>60); POTASSIUM 4.1 mmol/L (3.5-5.1)
[2017-04-08] MEDS ORDERED: ALDACTONE25 MG PO (17:02)
[2017-04-08] MEDS ORDERED: NORVASC2.5 MG PO (17:02)
[2017-04-08] MEDS ORDERED: METOPROLOL SUCC25 MG PO (17:03)
== END 2017-04-08 18:02 | disposition home or self-care (01) | DRG 392 ==
LOC: SED 08:52 → SEDOF 13:07 → C4B 17:43 → SEDOF 17:43 → C4B 18:35
PROVIDERS: Emergency Medicine; Family Medicine; Internal Medicine; Physician Assistant Medical
PROC: 05HB33Z Insertion of Infusion Device into Right Basilic Vein, Percutaneous Approach (ICD-10-PCS; principal; 2017-04-03)
PROC: B24BZZZ Ultrasonography of Heart with Aorta (ICD-10-PCS; 2017-04-07)
DX: R11.2 Nausea with vomiting, unspecified (principal); E87.2 Acidosis; F12.10 Cannabis abuse, uncomplicated; D72.829 Elevated white blood cell count, unspecified; I10 Essential (primary) hypertension; E87.6 Hypokalemia; E78.5 Hyperlipidemia, unspecified; R94.31 Abnormal electrocardiogram [ECG] [EKG]; E86.0 Dehydration; Z88.5 Allergy status to narcotic agent; Z82.49 Family history of ischemic heart disease and other diseases of the circulatory system; Z90.49 Acquired absence of other specified parts of digestive tract; Z87.442 Personal history of urinary calculi
CPT/HCPCS: 36415; 80048; 80053; 80076; 81003; 83690; 83735; 84132; 84443; 84703; 85025; 85027; 93005; 93306; 96361; 96374; 96375; 99285; C9113; J0360; J1200; J1885; J2060; J2405; J2550; J2765; J3475; J3490